=== PATIENT | female | born 1980 | race Caucasian/White ===

== ENCOUNTER 2020-07-09 10:18 | Observation (INO) | payer MEDICAID ==
[~2020-07-09] VITALS: Ht 139.7 cm; Wt 87.1 kg
[2020-07-09] MEDS ORDERED: CALC-1042 MT (11:55)
[2020-07-09] MEDS ORDERED: PREN1TAB78 MT (11:55)
[2020-07-09] MEDS ORDERED: FOLI-43 MT (11:55)
[2020-07-09] MEDS ORDERED: LACTATED RINGERS 1,000 ML IV SCH (12:00)
[2020-07-09] MEDS ORDERED: ACETAMINOPHEN 650MG/20.3ML UDC PO SCH (12:00)
[2020-07-09] MEDS ORDERED: ACETAMINOPHEN 325MG TABLET PO NR (12:15)
== END 2020-07-09 13:45 | disposition home or self-care (01) ==
LOC: 8 EST LDRP 10:18
PROVIDERS: ADMIT Obstetrics & Gynecology; ATTEND Obstetrics & Gynecology
DX: O26.893 Other specified pregnancy related conditions, third trimester (principal); R10.9 Unspecified abdominal pain; Z3A.33 33 weeks gestation of pregnancy
CPT/HCPCS: 59025; 76815; 82731; 96360; 96361; G0378; J7120

== ENCOUNTER → 2020-08-11 | Outpatient (CLI) | payer MEDICAID ==
[~2020-08-11] MED LIST: CALC-1042 MT; FOLI-43 MT; PREN1TAB78 MT
== END | disposition home or self-care (01) ==
LOC: LAB 09:41
PROVIDERS: ATTEND Obstetrics & Gynecology
DX: Z20.828 Contact with and (suspected) exposure to other viral communicable diseases (principal)
CPT/HCPCS: C9803; U0003

== ENCOUNTER 2020-08-14 07:59 | Inpatient (IN) | payer MEDICAID, OTHER ==
[~2020-08-14] VITALS: Ht 139.7 cm; Wt 88.9 kg
[2020-08-14] MEDS ORDERED: CARBOPROST TROMETHAMINE 250 MCG/ML AMPUL IM PRN (08:15)
[2020-08-14] MEDS ORDERED: NALOXONE HCL 0.4 MG/ML 1ML VIAL IM PRN (08:15)
[2020-08-14] MEDS ORDERED: METHYLERGONOVINE MALEATE 0.2 MG/ML IM PRN (08:15)
[2020-08-14] MEDS: LACTATED RINGERS 1,000 ML IV SCH ×2 (09:14→09:54)
[2020-08-14 09:36] LABS: BASOPHILS % 0.4 % (0.0-2.0); EOSINOPHILS % 1.6 % (0.0-5.0); HEMATOCRIT. 37.8 % (36.0-48.0); LYMPHOCYTES % 34.9 % (20.0-50.0); MEAN CORPUSCULAR HEMOGLOBIN 31.1 pg (28.0-32.0); MEAN CORPUSCULAR VOLUME 90.4 fL (81.0-99.0); MEAN PLATELET VOLUME 7.8 fl (7.4-10.4); MONOCYTES % 9.3 % (2.0-8.0); NEUTROPHILS % 53.8 % (40.0-76.0); PLATELET 335 x1000/uL (130-400); RED BLOOD CELL COUNT 4.18 mill/uL (4.2-5.4); RED CELL DISTRIBUTION WIDTH 15.2 % (11.6-14.6)
[2020-08-14 09:50] LABS: INR 0.9; PARTIAL THROMBOPLASTIN TIME 25.8 sec (23.4-31.0); PROTHROMBIN TIME 9.8 sec (9.6-11.0)
[2020-08-14 10:01] LABS: CLARITY URINE CLEAR (CLEAR); COLOR URINE YELLOW (YELLOW); KETONES URINE TRACE (NEGATIVE); LEUKOCYTE ESTERASE URINE NEGATIVE (NEGATIVE); NITRITE URINE NEGATIVE (NEGATIVE); OCCULT BLOOD URINE NEGATIVE (NEGATIVE); PH URINE 6.5 (4.5-8.0); PROTEIN URINE NEGATIVE (NEGATIVE); SPECIFIC GRAVITY URINE 1.015 (1.005-1.030)
[2020-08-14] MEDS ORDERED: MORPHINE SULFATE/PF 1MG/ML 10ML AMP ONE (10:10)
[2020-08-14] MEDS ORDERED: SODIUM CHLORIDE 0.9% 10ML VIAL ONE (10:10)
[2020-08-14] MEDS ORDERED: FENTANYL CITRATE/PF 50MCG/ML 2ML VIAL ONE (10:10)
[2020-08-14] MEDS ORDERED: METOCLOPRAMIDE HCL 10MG/2ML VIAL ONE (10:10)
[2020-08-14] MEDS ORDERED: CEFAZOLIN SODIUM 1000MG/VIAL ONE (10:10)
[2020-08-14] MEDS ORDERED: ONDANSETRON HCL 4MG/2ML INJ ONE (10:10)
[2020-08-14] MEDS ORDERED: OXYTOCIN 10 UNITS/ML 1ML ONE (10:11)
[2020-08-14] MEDS ORDERED: EPHEDRINE SULFATE 50MG/ML VIAL ONE (10:16)
[2020-08-14 10:49] LABS: *AMPHETAMINES SCREEN URINE NEGATIVE (NEGATIVE); *BARBITURATES SCREEN URINE NEGATIVE (NEGATIVE); *BENZODIAZEPINES SCREEN URINE NEGATIVE (NEGATIVE); *COCAINE SCREEN URINE NEGATIVE (NEGATIVE); METHADONE URINE SCREEN NEGATIVE (NEGATIVE); OPIATES URINE SCREEN NEGATIVE (NEGATIVE)
[2020-08-14 10:50] LABS: CANNABINOID URINE SCREEN NEGATIVE (NEGATIVE); PHENCYCLIDINE URINE SCREEN NEGATIVE (NEGATIVE)
[2020-08-14 11:36] LABS: HEPATITIS B SURFACE ANTIGEN NEGATIVE
[2020-08-14] MEDS: DEXT 5%/LR + PITOCIN 20UNITS/L 1,000 ML IV SCH ×2 (13:59→20:26)
[2020-08-14] MEDS ORDERED: METOCLOPRAMIDE HCL 10MG/2ML VIAL IV PRN (14:15)
[2020-08-14] MEDS ORDERED: DIPHENHYDRAMINE 50MG/ML VIAL IV PRN (14:15)
[2020-08-14] MEDS ORDERED: ONDANSETRON HCL 4MG/2ML INJ IV PRN (14:15)
[2020-08-14] MEDS ORDERED: DIPHENHYDRAMINE 50MG/ML VIAL IM PRN (14:15)
[2020-08-14] MEDS ORDERED: DEXAMETHASONE 4MG/ML 1ML VIAL IV ONE (15:30)
[2020-08-14 16:50] VITALS: BP_SYST 128; BP_SYST 136; BP_DIAS 84
[2020-08-14 17:30] VITALS: BP 119/68
[2020-08-14] MEDS ORDERED: HYDROCODONE/ACETAMINOPHEN 10/325MG TABLET PO PRN (18:15)
[2020-08-14 20:00] VITALS: BP 125/69
[2020-08-14] MEDS: KETOROLAC 30MG/ML VIAL IV SCH (20:07)
[2020-08-15] VITALS: BP 118/66
[2020-08-15] MEDS: KETOROLAC 30MG/ML VIAL IV SCH ×2 (02:23→08:41)
[2020-08-15 04:00] VITALS: BP 120/78
[2020-08-15 08:00] VITALS: BP 101/57
[2020-08-15 09:15] LABS: BASOPHILS % 0.3 % (0.0-2.0); EOSINOPHILS % 0.7 % (0.0-5.0); HEMATOCRIT. 34.4 % (36.0-48.0); HEMOGLOBIN. 11.6 g/dL (12.0-16.0); LYMPHOCYTES % 18.1 % (20.0-50.0); MEAN CORPUSCULAR HEMOGLOBIN 30.6 pg (28.0-32.0); MEAN CORPUSCULAR VOLUME 91.2 fL (81.0-99.0); MEAN PLATELET VOLUME 7.7 fl (7.4-10.4); MONOCYTES % 7.7 % (2.0-8.0); NEUTROPHILS % 73.2 % (40.0-76.0); PLATELET 306 x1000/uL (130-400); RED BLOOD CELL COUNT 3.78 mill/uL (4.2-5.4); RED CELL DISTRIBUTION WIDTH 15.1 % (11.6-14.6)
[2020-08-15 16:14] VITALS: BP 107/50
[2020-08-15] MEDS ORDERED: HYDROCODONE/ACETAMINOPHEN 10/325MG TABLET PO PRN (18:30)
[2020-08-15] MEDS ORDERED: MORPHINE SULFATE 2 MG/ML CPJ (NOT FOR IM USE) IV PRN (18:30)
[2020-08-15] MEDS: IBUPROFEN 800MG TABLET PO PRN (18:46)
[2020-08-15 20:00] VITALS: BP 107/61
[2020-08-15] MEDS ORDERED: BISACODYL 10MG SUPP PR PRN ×2 (21:45)
[2020-08-15] MEDS ORDERED: DOCUSATE SODIUM 100MG CAPSULE PO SCH (21:45)
[2020-08-15] MEDS ORDERED: SIMETHICONE 80MG TABLET CHEW PO SCH (22:30)
[2020-08-16] VITALS: BP 105/68
[2020-08-16] MEDS: IBUPROFEN 800MG TABLET PO PRN ×3 (00:56→13:40)
[2020-08-16 04:00] VITALS: BP 104/55
[2020-08-16 07:29] VITALS: BP 125/54
== END 2020-08-16 14:30 | disposition home or self-care (01) | DRG 540 ==
LOC: OBSVTOIN 07:59 → 8 EST LDRP 07:59 → 8EST 16:15
PROVIDERS: ADMIT Obstetrics & Gynecology; ATTEND Obstetrics & Gynecology
PROC: 10D00Z1 Extraction of Products of Conception, Low, Open Approach (ICD-10-PCS; principal; 2020-08-14)
PROC: 0UB70ZZ Excision of Bilateral Fallopian Tubes, Open Approach (ICD-10-PCS; 2020-08-14)
PROC: 0DNU0ZZ Release Omentum, Open Approach (ICD-10-PCS; 2020-08-14)
PROC: 0DNW0ZZ Release Peritoneum, Open Approach (ICD-10-PCS; 2020-08-14)
DX: O34.211 Maternal care for low transverse scar from previous cesarean delivery (principal); O99.62 Diseases of the digestive system complicating childbirth; K66.0 Peritoneal adhesions (postprocedural) (postinfection); O43.123 Velamentous insertion of umbilical cord, third trimester; Z30.2 Encounter for sterilization; Z37.0 Single live birth; Z3A.38 38 weeks gestation of pregnancy
CPT/HCPCS: 36415; 80305; 81003; 85025; 86592; 86703; 86762; 86850; 86900; 86920; 87340; 88302; 88307; J0690; J1200; J1885; J2274; J2405; J2590; J2765; J3010; J3490; J7120